=== PATIENT | female | born 1990 | race Caucasian/White ===

== ENCOUNTER 2023-01-05 10:41 | Outpatient (REF) | payer OTHER, SELFPAY ==
--- NOTE | 2023-01-05 15:00 | PAPFT_PTH ---
PATIENT: Nhung English LOC: [facility]#:[id number] AGE/SX: 32/F ROOM: RE01/05/[address]: Merly Gramajo : 1990 BED: DIS: 01/05/2023 SPEC #: [id number] RECD: 01/08/23 12:53 STATUS: SETH REQ #: [id number] KAYLA: 01/05/23 15:[address]: Merly Gramajo DEPT: [facility] Cytology RECD BY: Mary Ngo Tissues: 1 - CX/ENDOCX FOR PAP SMEARS Procedures: PAP THIN PREP/[facility] Screening HPV DNA PROBE Comments: [id number]
== END 2023-01-05 10:42 | disposition home or self-care (01) ==
LOC: NCHCN 10:41
PROVIDERS: PCP Family Medicine; Visit Provider Family Medicine
DX: Z12.4 Encounter for screening for malignant neoplasm of cervix (principal); Z00.00 Encounter for general adult medical examination without abnormal findings; Z11.51 Encounter for screening for human papillomavirus (HPV)
CPT/HCPCS: 88142; 87624

== ENCOUNTER 2024-01-08 15:57 | Outpatient (REF) | payer BC, SELFPAY ==
[2024-01-08 16:00] LABS: HCT 37.4 % (36.0-46.0); HGB 12.7 g/dL (11.2-15.7); MCH 29.7 pg (27.0-33.0); MCV 88 fL (80-95); MPV 9.2 fL (8.0-11.0); Platelet Count 313 10^3/uL (130-400); RBC 4.27 10^6/uL (3.93-5.22); RDW 13.3 % (11.7-14.6); RDW-SD 42.2 fL; WBC 5.99 10^3/uL (4.4-10.8)
[2024-01-08 16:35] LABS: Hemoglobin A1C 5.4 % (<5.7)
[2024-01-08 16:51] LABS: TSH (W/Ref FT4) 2.83 uIU/mL (0.36-3.74)
== END 2024-01-08 15:58 | disposition home or self-care (01) ==
LOC: NCHCN 15:57
PROVIDERS: PCP Family Medicine; Visit Provider Physician Assistant
DX: N92.6 Irregular menstruation, unspecified (principal); Z83.3 Family history of diabetes mellitus
CPT/HCPCS: 85027; 83036; 84443